=== PATIENT | female | born 1980 | race Caucasian/White ===

== ENCOUNTER 2021-09-17 08:00 | Inpatient (IN) | payer OTHER ==
[~2021-09-17] VITALS: Ht 157.5 cm; Wt 89.8 kg
[~2021-09-17 08:00] MED LIST: NORCO 5-325 TA1 EACH PO
[2021-09-17] MEDS ORDERED: APPLE CIDER VI300 MG PO (10:19)
[2021-09-17] MEDS ORDERED: PROBIOTIC250 MG PO (10:19)
[2021-09-17] MEDS ORDERED: IRON PO (10:19)
[2021-09-17] MEDS ORDERED: NIZORAL CREAM 330 GM TOP (10:20)
[2021-09-17] MEDS ORDERED: TRIAMCINOLONE 080 GM TOP (10:21)
[2021-09-17] MEDS ORDERED: COLACE PO (10:21)
[2021-09-17] MEDS ORDERED: VENTOLIN HFA IN18 GM INH (10:22)
[2021-09-17 10:54] LABS: HCG (URINE) SCREEN NEGATIVE (NEGATIVE)
[2021-09-18 06:47] LABS: BUN/CREAT RATIO (CALC) 7.5 RATIO; CREATININE 0.67 mg/dL (0.51-0.95); POTASSIUM 3.9 mmol/L (3.5-5.1)
[2021-09-20] MEDS ORDERED: PERCOCET 5-3251 EACH PO (14:29)
[2021-09-20] MEDS ORDERED: IBUPROFEN800 MG PO (14:29)
[2021-09-20] MEDS ORDERED: CULTURELLE1 EACH PO (14:31)
[2021-09-20] MEDS ORDERED: LACTINEX1 EACH PO (14:31)
== END 2021-09-20 16:07 | disposition home or self-care (01) | DRG 355 ==
LOC: FSDC 09:56 → FMS 11:00
PROVIDERS: ADMIT Surgery
PROC: 0WQF0ZZ Repair Abdominal Wall, Open Approach (ICD-10-PCS; 2021-09-17)
PROC: 0WUF0JZ Supplement Abdominal Wall with Synthetic Substitute, Open Approach (ICD-10-PCS; principal; 2021-09-17 11:00)
DX: K43.2 Incisional hernia without obstruction or gangrene (principal); K42.9 Umbilical hernia without obstruction or gangrene; E66.9 Obesity, unspecified; R50.9 Fever, unspecified; Z98.890 Other specified postprocedural states; Z88.1 Allergy status to other antibiotic agents; Z68.36 Body mass index [BMI] 36.0-36.9, adult
CPT/HCPCS: 36415; 80048; 84703; 86850; 86900; 86901; 93005; 94010; 94762; C1781; J0690; J1100; J1170; J1650; J2250; J2405; J2704; J2710; J3010; J7120

== ENCOUNTER 2021-09-21 19:00 | Emergency (ER) | payer OTHER ==
[~2021-09-21 19:00] MED LIST changes: +APPLE CIDER VI300 MG PO; +COLACE PO; +CULTURELLE1 EACH PO; +IBUPROFEN800 MG PO; +IRON PO; +LACTINEX1 EACH PO; +NIZORAL CREAM 330 GM TOP; +PERCOCET 5-3251 EACH PO; +PROBIOTIC250 MG PO; +TRIAMCINOLONE 080 GM TOP; +VENTOLIN HFA IN18 GM INH
== END 2021-09-21 21:50 | disposition home or self-care (01) ==
LOC: FER 19:00
DX: Z48.815 Encounter for surgical aftercare following surgery on the digestive system (principal); I10 Essential (primary) hypertension; Z87.891 Personal history of nicotine dependence; Z28.310 Unvaccinated for COVID-19
CPT/HCPCS: 99282

== ENCOUNTER 2021-09-29 20:33 | Emergency (ER) | payer OTHER ==
[2021-09-29 23:44] LABS: EOSINOPHIL 3.8 % (0-5); HCT 36.4 % (37.0-47.0); HGB 11.9 g/dl (12.5-16.0); LYMPHOCYTE 26.8 % (15-48); MCH 28.5 pg (25.0-31.0); MCHC 32.7 g/dL (32.0-36.0); MCV 87.1 fL (78.0-100.0); NRBC 0; PLT 422 K/uL (150-400); RBC 4.18 M/uL (4.20-5.40); RDW 13.3 % (11.5-14.0); WBC 11.5 K/uL (4.0-10.5)
[2021-09-29 23:59] LABS: BILIRUBIN - TOTAL 0.2 mg/dL (0.2-1.0); BUN/CREAT RATIO (CALC) 19.7 RATIO; CREATININE 0.76 mg/dL (0.51-0.95); POTASSIUM 3.6 mmol/L (3.5-5.1)
[2021-09-30] MEDS ORDERED: CLEOCIN HCL300 MG PO (03:01)
== END 2021-09-30 04:06 | disposition home or self-care (01) ==
LOC: FER 20:33
PROVIDERS: Internal Medicine
DX: R10.33 Periumbilical pain (principal); Z98.890 Other specified postprocedural states; Z88.1 Allergy status to other antibiotic agents; Z28.310 Unvaccinated for COVID-19
CPT/HCPCS: 36415; 80053; 84145; 85025; 87070; 87077; 87186; 87205; Q9967